=== PATIENT | male | born 1960 | race Caucasian/White ===

== ENCOUNTER 2023-11-07 10:34 | Emergency (ER) | payer OTHER, SELFPAY ==
[2023-11-07 10:59] VITALS: BP 118/84; PULSE 98; RESP 22; O2SAT 96; BMI 31.2
[2023-11-07 11:04] VITALS: TEMP 36.3
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
[2023-11-07 11:13] VITALS: O2SAT 97
[2023-11-07] MEDS: MORPHINE 4 MG/ML INJ IVP (11:32)
[2023-11-07] MEDS: ONDANSETRON 2 MG/ML inj 4 MG IVP (11:33)
[2023-11-07] MEDS: BACITRACIN OINTMENT BULK TUBE 1 APPLIC TOPICAL (11:51)
[2023-11-07] MEDS: LACTATED RINGERS 1000 ML 1,000 ML 125 ML IV (11:51)
== END 2023-11-07 12:43 | disposition short-term general hospital (02) ==
PROVIDERS: Emergency Provider Family Medicine
DX: T21.33XA Burn of third degree of upper back, initial encounter (principal); T21.14XA Burn of first degree of lower back, initial encounter; T24.111A Burn of first degree of right thigh, initial encounter; X17.XXXA Contact with hot engines, machinery and tools, initial encounter
CPT/HCPCS: 94761; 96374; 96375; 99283; 99285; A9270; J2270; J2405; J7120

== ENCOUNTER 2023-11-07 12:02 | Outpatient (CLI) | payer OTHER, SELFPAY | END 2023-11-07 12:03 | disposition home or self-care (01) | LOC: AMB 11-14 16:09 | PROVIDERS: Visit Provider Family Medicine | DX: T21.1 Burn of first degree of trunk (principal); T21.3 Burn of third degree of trunk | CPT/HCPCS: A0425; A0434 ==